=== PATIENT | male | born 1960 | race Caucasian/White ===

== ENCOUNTER 2019-10-17 14:46 | Inpatient (IN) | payer OTHER, MEDICARE ==
[~2019-10-17] VITALS: Ht 177.8 cm; Wt 123.7 kg
[2019-10-17 15:52] LABS: ALBUMIN 4.1 g/dL (3.4-5.0); ANION GAP 6 mmol/L (5-15); CALCIUM 9.7 mg/dL (8.5-10.1); CHLORIDE 103 mmol/L (98-107)
[2019-10-17 15:57] LABS: ALANINE AMINOTRANSFERASE 44 U/L (12-78); ALKALINE PHOSPHATASE 58 U/L (45-117); BILIRUBIN,TOTAL 1.1 mg/dL (0.2-1.0); TOTAL PROTEIN 8.4 g/dL (6.4-8.2); TROPONIN I < 0.015 ng/mL (0.000-0.045)
--- NOTE | 2019-10-17 16:14 | NUR ---
PT BACK FROM US, AMBULATORY TO RESTROOM WITH STEADY GAIT FOR URINE SAMPLE.
--- NOTE | 2019-10-17 16:29 | NUR ---
PT HERE WITH C/O ABDOMINAL PAIN, DIFFUSE IN LOCATION AND NAUSEA. PT DENIES CONSTIPATION, DIARRHEA, OR VOMITTING. PT AAO X 4, NAD, ROOM AIR, CALL LIGHT WITHIN REACH. AT BEDSIDE, SIDERAIL X [address]. PT STATES IT STARTED LAST NIGHT. PT ALSO STATES HE HAD A NERVE ALBATION IN LOWER BACK YESTERDAY. PT DRESSED IN GOWN AND ATTACHED TO MONITOR.
[2019-10-17 16:33] LABS: MEAN CORPUSCULAR HEMOGLOBIN 26.4 pg (27.5-34.5); MEAN CORPUSCULAR HGB CONC 31.2 g/dL (33.2-36.2); MEAN CORPUSCULAR VOLUME 84.6 fL (81-97); MEAN PLATELET VOLUME 8.4 fL (7.4-10.4); PLATELET COUNT 352 x10^3/uL (130-400); RED BLOOD COUNT 6.91 x10^6/uL (4.38-5.82); RED CELL DISTRIBUTION WIDTH 16.5 % (9.4-14.8)
[2019-10-17 16:34] LABS: MD YES
[2019-10-17 17:18] LABS: BAND#(MANUAL) 0.18 x10^3/uL; BANDS%(MANUAL) 1 % (0-7); LYMPH#(MANUAL) 2.53 x10^3/uL (1-3.4); LYMPHS% (MANUAL) 14 % (22-44); MONOS#(MANUAL) 1.09 x10^3/uL (0.3-2.7); MONOS% (MANUAL) 6 % (2-9); SEGS% (MANUAL) 79 % (42-75)
[2019-10-17 17:19] LABS: <PLATELET ESTIMATE> ADEQUATE; <PLT MORPHOLOGY> NORMAL PLT MORPH; ANISOCYTOSIS 1+
--- NOTE | 2019-10-17 17:47 | NUR ---
AT BEDSIDE. PIV ESTABLISHED BY THIS RN.
[2019-10-17] MEDS ORDERED: ONDANSETRON 2MG/ML, 2ML ONE (17:48)
--- NOTE | 2019-10-17 17:53 | NUR ---
PT TO CT.
[2019-10-17] MEDS ORDERED: SODIUM CHLORIDE FLUSH 10ML SYR IVF ONE (18:00)
[2019-10-17] MEDS ORDERED: SODIUM CHLORIDE 0.9% 1,000ML IVBOLUS ONE (18:00)
[2019-10-17] MEDS ORDERED: ONDANSETRON 2MG/ML, 2ML IVPush ONE (18:00)
--- NOTE | 2019-10-17 18:05 | NUR ---
PT BACK FROM CT. MEDICATED PER ORDERS.
[2019-10-17] MEDS ORDERED: OMNIPAQUE 350 MG/ML, 100ML BOTTLE ONE (18:10)
[2019-10-17] MEDS ORDERED: SODIUM CHLORIDE 0.9% 1,000 ML IV ONE ×2 (18:34→19:05)
--- NOTE | 2019-10-17 19:01 | NUR ---
H AT BEDSIDE, INITIAL PLAN FROM ERP WAS TO PLACE NG TUBE TO LOW CONTINUOUS SUCTION. PER [facility], NO NEED FOR NG TUBE PT IS NOT VOMITTING.
[2019-10-17] MEDS: HYDROmorphone 2 MG/ML, 1ML IVPush PRN ×2 (19:03→19:53)
--- NOTE | 2019-10-17 19:09 | NUR ---
PER SM, HOLD ON NG TUBE IN ED, IF PT BECOMES NAUSEOUS OR HAS EPISODES OF VOMITTING, NG TUBE CAN BE PLACED IN INPATIENT ROOM. ERP NOTIFIED AND AWARE, ERP TO DEFER PLAN OF CARE TO [facility].
--- NOTE | 2019-10-17 19:18 | NUR ---
UA SENT TO LAB.
[2019-10-17] MEDS ORDERED: OXYC-302 PO (19:28)
[2019-10-17] MEDS ORDERED: HYDROXYZINE (19:28)
[2019-10-17] MEDS ORDERED: BUPR1PAT7 PERC (19:28)
[2019-10-17] MEDS ORDERED: CYCLOBENZAPRINE PO (19:28)
[2019-10-17] MEDS ORDERED: REQUIP (19:28)
[2019-10-17] MEDS ORDERED: RITALIN PO (19:28)
[2019-10-17] MEDS ORDERED: LEVO25TA2 PO (19:28)
--- NOTE | 2019-10-17 19:28 | NUR ---
MED REC COMPLETED.
[2019-10-17] MEDS ORDERED: hydrALAzine 20 MG/ML, 1ML IVPush PRN (19:30)
[2019-10-17] MEDS ORDERED: SODIUM CHLORIDE FLUSH 10ML SYR IVF PRN (19:30)
[2019-10-17] MEDS ORDERED: ONDANSETRON 2MG/ML, 2ML IVPush PRN (19:30)
[2019-10-17 19:32] LABS: MICROSCOPIC NOT IND
[2019-10-17 19:36] LABS: CULTURE INDICATED? NO
[2019-10-17] MEDS ORDERED: HYDROmorphone 2 MG/ML, 1ML ONE (19:50)
--- NOTE | 2019-10-17 19:53 | NUR ---
PT MEDICATED PER ORDERS.
--- NOTE | 2019-10-17 20:00 | NUR ---
BOTH SETS OF BLOOD CULTURES DRAWN.
--- NOTE | 2019-10-17 20:04 | NUR ---
REPORT GIVEN TO DANII LOVE. PT TO TRANSFER TO INPATIENT STATUS.
--- NOTE | 2019-10-17 20:29 | NUR ---
PT O2 SATS 86%, PLACED ON 2L NC. PT ALSO C/O PAIN, PT LEAVING UNIT TO TRANSFER TO INPATIENT STATUS, THIS RN TO NOTIFY FLOOR RN.
[2019-10-17] MEDS: morphine SULFATE 10 MG/ML, 1ML IVPush PRN (20:50)
[2019-10-17] MEDS: SODIUM CHLORIDE 0.9% 1,000 ML IV SCH (20:50)
[2019-10-17 20:59] VITALS: BP 145/91
[2019-10-17] MEDS ORDERED: FROVA PO (21:13)
[2019-10-17] MEDS: BISACODYL 10 MG SUPP PR SCH (21:24)
[2019-10-18 01:17] VITALS: BP 138/82
[2019-10-18] MEDS: morphine SULFATE 10 MG/ML, 1ML IVPush PRN (01:22)
[2019-10-18] MEDS: SODIUM CHLORIDE 0.9% 1,000 ML IV SCH ×2 (04:19→15:43)
[2019-10-18 05:18] LABS: MEAN CORPUSCULAR HEMOGLOBIN 26.7 pg (27.5-34.5); MEAN CORPUSCULAR HGB CONC 31.6 g/dL (33.2-36.2); MEAN CORPUSCULAR VOLUME 84.5 fL (81-97); MEAN PLATELET VOLUME 8.2 fL (7.4-10.4); PLATELET COUNT 328 x10^3/uL (130-400); RED BLOOD COUNT 6.29 x10^6/uL (4.38-5.82); RED CELL DISTRIBUTION WIDTH 16.9 % (9.4-14.8)
[2019-10-18 05:28] LABS: ALANINE AMINOTRANSFERASE 35 U/L (12-78); ALBUMIN 3.5 g/dL (3.4-5.0); ANION GAP 5 mmol/L (5-15); CALCIUM 8.4 mg/dL (8.5-10.1); CHLORIDE 107 mmol/L (98-107); CREATININE 0.96 mg/dL (0.7-1.3)
[2019-10-18 05:30] LABS: ALKALINE PHOSPHATASE 55 U/L (45-117); BILIRUBIN,TOTAL 1.1 mg/dL (0.2-1.0); TOTAL PROTEIN 7.2 g/dL (6.4-8.2)
[2019-10-18 06:10] LABS: BASOPHILS # (AUTO) 0.02 x10^3/uL (0-0.1); BASOPHILS % (AUTO) 0 % (0-1); EOSINOPHILS # (AUTO) 0.19 x10^3/uL (0-0.4); EOSINOPHILS % (AUTO) 1 % (1-7); LYMPHOCYTES % (AUTO) 18 % (22-44); MD SCAN; MONOCYTES # (AUTO) 1.53 x10^3/uL (0.2-0.8); MONOCYTES % (AUTO) 10 % (2-9); NEUTROPHILS # (AUTO) 10.87 x10^3/uL (1.8-6.8); NEUTROPHILS % (AUTO) 71 % (42-75)
[2019-10-18 07:38] VITALS: BP 151/82
[2019-10-18] MEDS: BISACODYL 10 MG SUPP PR SCH (10:55)
[2019-10-18 12:46] VITALS: BP 121/69
[2019-10-18 18:22] VITALS: BP 136/83
[2019-10-19 00:04] VITALS: BP 137/82
[2019-10-19] MEDS: SODIUM CHLORIDE 0.9% 1,000 ML IV SCH ×2 (00:06→08:30)
[2019-10-19] MEDS ORDERED: PRAM1.5T7 PO (04:23)
[2019-10-19 05:01] LABS: BASOPHILS # (AUTO) 0.07 x10^3/uL (0-0.1); BASOPHILS % (AUTO) 1 % (0-1); EOSINOPHILS # (AUTO) 0.43 x10^3/uL (0-0.4); EOSINOPHILS % (AUTO) 3 % (1-7); LYMPHOCYTES # (AUTO) 3.21 x10^3/uL (1-3.4); LYMPHOCYTES % (AUTO) 25 % (22-44); MD NO; MEAN CORPUSCULAR HEMOGLOBIN 27.2 pg (27.5-34.5); MEAN CORPUSCULAR HGB CONC 31.9 g/dL (33.2-36.2); MEAN CORPUSCULAR VOLUME 85.3 fL (81-97); MEAN PLATELET VOLUME 8.2 fL (7.4-10.4); MONOCYTES # (AUTO) 1.28 x10^3/uL (0.2-0.8); MONOCYTES % (AUTO) 10 % (2-9); NEUTROPHILS % (AUTO) 61 % (42-75); PLATELET COUNT 320 x10^3/uL (130-400); RED CELL DISTRIBUTION WIDTH 16.8 % (9.4-14.8)
[2019-10-19 05:09] LABS: ALBUMIN 3.5 g/dL (3.4-5.0); ANION GAP 3 mmol/L (5-15); CALCIUM 8.1 mg/dL (8.5-10.1); CHLORIDE 105 mmol/L (98-107)
[2019-10-19 05:13] LABS: ALANINE AMINOTRANSFERASE 32 U/L (12-78); ALKALINE PHOSPHATASE 52 U/L (45-117); TOTAL PROTEIN 7.1 g/dL (6.4-8.2)
[2019-10-19 08:16] VITALS: BP 137/87
[2019-10-19] MEDS: BISACODYL 10 MG SUPP PR SCH (09:00)
[2019-10-19] MEDS ORDERED: ONDA4TAB13 SL (11:26)
== END 2019-10-19 11:52 | disposition home or self-care (01) | DRG 389 ==
LOC: ED 18:54 → EDIP 19:05 → 3N 20:34
PROVIDERS: ADMIT Internal Medicine; ATTEND Internal Medicine
DX: K56.52 Intestinal adhesions [bands] with complete obstruction (principal); R65.10 Systemic inflammatory response syndrome (SIRS) of non-infectious origin without acute organ dysfunction; D72.829 Elevated white blood cell count, unspecified; D75.1 Secondary polycythemia; E03.9 Hypothyroidism, unspecified; G25.81 Restless legs syndrome; G89.29 Other chronic pain; K21.9 Gastro-esophageal reflux disease without esophagitis; K42.9 Umbilical hernia without obstruction or gangrene; Z96.652 Presence of left artificial knee joint
CPT/HCPCS: 36415; 71045; 74018; 74177; 76700; 80053; 81003; 83605; 83690; 83735; 84100; 84484; 85025; 87040; 93005; G0378; J1170; J2405; Q9967; J2270; J7030

== ENCOUNTER 2020-12-20 13:06 | Outpatient (CLI) | payer MEDICARE ==
[~2020-12-20 13:06] MED LIST: BUPR1PAT7 PERC; CYCLOBENZAPRINE PO; FROVA PO; HYDROXYZINE; LEVO25TA2 PO; ONDA4TAB13 SL; OXYC1TAB14 PO; PRAM1.5T7 PO; REQUIP; RITALIN PO
[2020-12-20] MEDS ORDERED: LIDOCAINE 1%, 20ML ONE (13:31)
[2020-12-20] MEDS ORDERED: OMNIPAQUE 300 MG/ML, 10ML VIAL ONE (14:00)
== END 2020-12-20 23:59 | disposition home or self-care (01) ==
LOC: RAD 13:06
PROVIDERS: ATTEND Physician Assistant
DX: S46.011A Strain of muscle(s) and tendon(s) of the rotator cuff of right shoulder, initial encounter (principal); M19.011 Primary osteoarthritis, right shoulder; M25.711 Osteophyte, right shoulder; M79.7 Fibromyalgia; G43.909 Migraine, unspecified, not intractable, without status migrainosus; E66.9 Obesity, unspecified; Z68.31 Body mass index [BMI] 31.0-31.9, adult; Z79.890 Hormone replacement therapy; Z79.891 Long term (current) use of opiate analgesic; Z79.899 Other long term (current) drug therapy; Z88.0 Allergy status to penicillin; Z88.2 Allergy status to sulfonamides; Z88.8 Allergy status to other drugs, medicaments and biological substances; W00.2XXA Other fall from one level to another due to ice and snow, initial encounter; Y93.39 Activity, other involving climbing, rappelling and jumping off; Y92.89 Other specified places as the place of occurrence of the external cause; Y99.8 Other external cause status
CPT/HCPCS: 23350; 73040; 73201; Q9967

== ENCOUNTER → 2021-01-28 | Outpatient (CLI) | payer MEDICARE | END | disposition home or self-care (01) | LOC: RAD 10:33 | PROVIDERS: ATTEND Orthopaedic Surgery | DX: Z96.652 Presence of left artificial knee joint (principal) | CPT/HCPCS: 78315; A9503 ==

== ENCOUNTER 2021-02-21 09:53 | Outpatient (CLI) | payer MEDICARE ==
[~2021-02-21 09:53] MED LIST changes: -BUPR1PAT7 PERC; +BUPR1PAT7 TD
[2021-02-21] MEDS ORDERED: METH20TA PO (10:53)
[2021-02-21] MEDS ORDERED: CYCL10TA2 PO (10:53)
[2021-02-21] MEDS ORDERED: HYDR-826 PO (10:53)
[2021-02-21] MEDS ORDERED: ESOM40CA48 PO (10:53)
[2021-02-21] MEDS ORDERED: FROV2.5T4 PO (10:53)
[2021-02-21] MEDS ORDERED: clonidine PO (10:53)
[2021-02-21] MEDS ORDERED: GABA-827 PO (10:53)
== END 2021-02-21 23:59 | disposition home or self-care (01) ==
LOC: STAR 09:53
PROVIDERS: ATTEND Orthopaedic Surgery
DX: Z01.818 Encounter for other preprocedural examination (principal); M75.01 Adhesive capsulitis of right shoulder; M75.41 Impingement syndrome of right shoulder; Z20.822 Contact with and (suspected) exposure to COVID-19
CPT/HCPCS: 93005; U0003

== ENCOUNTER 2021-02-26 08:07 | Day surgery (SDC) | payer MEDICARE ==
[~2021-02-26] VITALS: Ht 177.8 cm; Wt 120.0 kg
[~2021-02-26 08:07] MED LIST changes: +CYCL10TA2 PO; +ESOM40CA48 PO; +FROV2.5T4 PO; +GABA-827 PO; +HYDR-826 PO; +METH20TA PO; +clonidine PO
[2021-02-26] MEDS ORDERED: BUPIVACAINE/PF 0.25% ONE (08:48)
[2021-02-26] MEDS ORDERED: EPINEPHRINE 1 MG/ML, 1ML ONE (08:48)
[2021-02-26 08:58] VITALS: BP 139/81
[2021-02-26] MEDS ORDERED: LACTATED RINGERS 1,000 ML IV SCH (09:00)
[2021-02-26] MEDS ORDERED: CHLORHEXIDINE 15 ML UDC PO ONE (09:00)
[2021-02-26] MEDS ORDERED: CHLORHEXIDINE 15 ML UDC ONE (09:08)
[2021-02-26] MEDS ORDERED: MIDAZOLAM 1 MG/ML, 2ML ONE (09:22)
[2021-02-26] MEDS ORDERED: FENTANYL PF 100 MCG/2ML ONE ×2 (09:22→11:36)
[2021-02-26] MEDS ORDERED: CLINDAMYCIN 150 MG/ML, 6ML ONE (09:58)
[2021-02-26] MEDS ORDERED: EPHEDRINE 50 MG/ML, 1ML ONE (10:04)
[2021-02-26] MEDS ORDERED: ONDANSETRON 2MG/ML, 2ML ONE (10:51)
[2021-02-26] MEDS ORDERED: ROCURONIUM 10MG/ML,5ML ONE (10:51)
[2021-02-26] MEDS ORDERED: SUCCINYLCHOLINE 20 MG/ML, 10ML ONE (10:51)
[2021-02-26] MEDS ORDERED: DEXAMETHASONE 4 MG/ML, 1ML ONE (10:51)
[2021-02-26] MEDS ORDERED: PROPOFOL 10 MG/ML, 20ML ONE (10:51)
[2021-02-26] MEDS ORDERED: CEFAZOLIN 1,000 MG ONE (10:51)
[2021-02-26] MEDS ORDERED: NEOSTIGMINE 1 MG/ML, 10ML ONE (10:51)
[2021-02-26] MEDS ORDERED: GLYCOPYRROLATE 0.2MG/1ML, 5ML ONE (10:51)
[2021-02-26] MEDS ORDERED: PROMETHAZINE 25 MG SUPP PR PRN (11:00)
[2021-02-26] MEDS ORDERED: OXYcodone 5 MG/5 ML ORAL.SOL UDC PO PRN (11:00)
[2021-02-26] MEDS ORDERED: hydrALAzine 20 MG/ML, 1ML IV PRN (11:00)
[2021-02-26] MEDS ORDERED: ACETAMINOPHEN 325 MG TABLET PO PRN (11:00)
[2021-02-26] MEDS ORDERED: ONDANSETRON 2MG/ML, 2ML IVPush PRN (11:00)
[2021-02-26] MEDS ORDERED: HYDROmorphone 1 MG/ML, 1ML INJ IVPush PRN (11:00)
[2021-02-26] MEDS ORDERED: LORazepam 2 MG/ML, 1ML IVPush PRN (11:00)
[2021-02-26] MEDS ORDERED: METHOCARBAMOL 1,000 MG in DEXTROSE 5% 100 ML IV PRN (11:00)
[2021-02-26] MEDS ORDERED: LABETALOL 5MG/ML, 20ML IV PRN (11:00)
[2021-02-26] MEDS ORDERED: PROMETHAZINE 25 MG/ML, 1ML IVPush PRN (11:00)
[2021-02-26] MEDS ORDERED: FENTANYL PF 100 MCG/2ML IV PRN (11:00)
[2021-02-26] MEDS ORDERED: OXYcodone 5 MG/5 ML ORAL.SOL UDC ONE (11:36)
[2021-02-26] MEDS ORDERED: HYDROmorphone 1 MG/ML, 1ML INJ ONE (11:36)
== END 2021-02-26 14:00 | disposition home or self-care (01) ==
LOC: OUT 08:07
PROVIDERS: ATTEND Orthopaedic Surgery
DX: S46.011A Strain of muscle(s) and tendon(s) of the rotator cuff of right shoulder, initial encounter (principal); S43.431A Superior glenoid labrum lesion of right shoulder, initial encounter; M94.211 Chondromalacia, right shoulder; M25.611 Stiffness of right shoulder, not elsewhere classified; M75.41 Impingement syndrome of right shoulder; M75.01 Adhesive capsulitis of right shoulder; M75.51 Bursitis of right shoulder; M19.011 Primary osteoarthritis, right shoulder; G89.18 Other acute postprocedural pain; M79.7 Fibromyalgia; J45.909 Unspecified asthma, uncomplicated; E07.9 Disorder of thyroid, unspecified; Z79.890 Hormone replacement therapy; Z79.891 Long term (current) use of opiate analgesic; Z79.899 Other long term (current) drug therapy; Z88.0 Allergy status to penicillin; Z88.1 Allergy status to other antibiotic agents; Z88.2 Allergy status to sulfonamides; Z88.8 Allergy status to other drugs, medicaments and biological substances; Z98.890 Other specified postprocedural states; W01.0XXA Fall on same level from slipping, tripping and stumbling without subsequent striking against object, initial encounter; Y93.89 Activity, other specified; Y92.89 Other specified places as the place of occurrence of the external cause; Y99.8 Other external cause status
CPT/HCPCS: 29823; 29826; 29827; 64415; C1713; C5271; J0171; J0330; J0690; J1100; J2250; J2405; J2704; J2710; J3010; J7120; Q4100